=== PATIENT | male | born 1950 | race Caucasian/White ===

== ENCOUNTER 2017-01-26 19:41 | Emergency (ER) | payer SELFPAY ==
[~2017-01-26] VITALS: Ht 177.8 cm; Wt 95.9 kg
[~2017-01-26 19:41] MED LIST: NOHOMEMEDS
[2017-01-26 21:48] VITALS: BP 160/90
== END 2017-01-26 21:49 | disposition home or self-care (01) ==
LOC: EME 19:41
DX: S05.01XA Injury of conjunctiva and corneal abrasion without foreign body, right eye, initial encounter (principal); W22.8XXD Striking against or struck by other objects, subsequent encounter; F17.200 Nicotine dependence, unspecified, uncomplicated
CPT/HCPCS: 99281; 99283